=== PATIENT | male | born 1975 | race Caucasian/White ===

== ENCOUNTER 2017-05-05 16:59 | Emergency (ER) | payer BC, SELFPAY | END 2017-05-05 18:21 | disposition home or self-care (01) | PROVIDERS: Emergency Provider Emergency Medicine; Visit Provider Emergency Medicine | DX: I10 Essential (primary) hypertension (principal); Z91.14 Patient's other noncompliance with medication regimen; Z88.0 Allergy status to penicillin | CPT/HCPCS: 99282 ==

== ENCOUNTER 2017-05-22 13:23 | Emergency (ER) | payer BC, SELFPAY ==
[2017-05-22 14:57] VITALS: BP 151/98; PULSE 94; RESP 20; TEMP 36.6; O2SAT 100; BMI 31.1
[2017-05-22 15:15] LABS: UTC Influenza A Antigen Negative (Negative); UTC Influenza B Antigen Negative (Negative)
--- NOTE | 2017-05-22 15:28 | HMH.EDUTC ---
[facility] [place] Clinical Impression: Viral upper respiratory illness Disposition: Home, Self-Care Condition on Discharge: Good Instructions: Common Cold, DI for Viral Upper Respiratory Infection -- Adult Additional Instructions: * Monitor Temp. Tylenol and/or Ibuprofen as needed. ER if fever is no less than 101 despite alternating Tylenol and Ibuprofen * Encourage fluids, water, Gatorade, powerade, pedialyte if infant/toddler/or child * Warm salt water gargles for throat irritation *Warm fluids *Sore throat lozenges *Sleep elevated *humidifier or vaporizer Lots of rest Increase fluids, water, Gatorade, powerade *Bromfed may cause drowsiness. Know how it effect you or your child. Before driving, caring for small children or sending your child to school *Your throat swab was sent to lab for culture. Those results area typically sent to your primary care physician. Be sure to follow up in 2-3 days if no improvement so they can review those results and treat if necessary If you dont have primary care I recommend you get one, but in the mean time you will have to return to a walk in clinic Follow up IMMEDIATELY for new or worsening of symptoms OR no noticeable improvement over the next 48-72 hours. 911 immediately for any life threatening symptoms such as chest pain or difficulty breathing Prescriptions: Brompheniramine/Pseudoephed/Dm [Bromfed DM Cough Syrup 5mL] 10 ml PO Q4H PRN #200 syrup PRN Reason: Cough Referrals: Tristan Garcia [Primary Care Provider] - Time of Disposition: 15:37 Medical Decision Making Vital Signs: 05/22/17 14:57 Temperature 97.9 F Temperature Source Temporal Artery Scan Pulse Rate [Right] 94 H Respiratory Rate 20 Blood Pressure [Right Arm] 151/98 Blood Pressure Mean [Right Arm] 115 Blood Pressure Source [Right Arm] Automatic Cuff Blood Pressure Position [Right Arm] Sitting 02 Sat by Pulse Oximetry 100 Oxygen Delivery Method Room Air - Lab Data Lab Results 05/22/17 15:01: Influenza Type A Ag Negative, Influenza Type B Ag Negative - Ketan Inquiry Pt receiving controlled substance: No Ketan was queried for this patient: No [facility] [place] - General Stated complaint: fever cough Mode of Arrival: Ambulatory Source of Information: Patient Limitations: No Limitations Description of Symptoms (Recalled from Triage Doc. by RN): COUGH, CONGESTION, HEADACHE SATURDAY HEENT Symptoms (Recalled from RN notes): Yes Resp Symptoms (Recalled from RN notes): No Skin Symptoms (Recalled from RN notes): No MS Symptoms (Recalled from RN notes): No Functional Status (Recalled from RN notes): N - History of Present Illness Provider Complaint: Patient states that he has been having flu like symptoms for three days now States that he has had a fever on and off for the last 3 days and thought he better come in and get checked for the flu - Related Data Previous Rx's Medication Instructions Recorded Brompheniramine/Pseudoephed/Dm 10 ml PO Q4H PRN #200 syrup 05/22/17 [Bromfed DM Cough Syrup 5mL] Allergies Allergy/AdvReac Type Severity Reaction Status Date / Time Penicillins [PENICILLINS] Allergy Mild Unverified 05/07/17 14:28 - Worker's Comp Is this a Worker's Comp case?: No [facility] History - *Social History Alcohol Intake: never - Psychiatric History Expresses thoughts of harming self/others: None Suicide Plan Description: No Plan - Constitutional Reports chills, Reports fever(s) - ENT Reports nasal congestion - Respiratory Reports cough Physical Exam - General General appearance: alert, in no apparent distress - ENT ENT exam: Present: normal exam, normal oropharynx, mucous membranes moist, TM's normal bilaterally, normal external ear exam - Respiratory Respiratory exam: Present: normal lung sounds bilaterally. Absent: respiratory distress - Cardiovascular Cardiovascular exam: Present: regular rate, normal rhythm. Absent: JVD - Neurological Exam Neurolo
--- NOTE | 2017-05-22 15:36 | ED_ITS ---
[facility] [place] Clinical Impression: Viral upper respiratory illness Disposition: Home, Self-Care Condition on Discharge: Good Instructions: Common Cold, DI for Viral Upper Respiratory Infection -- Adult Additional Instructions: * Monitor Temp. Tylenol and/or Ibuprofen as needed. ER if fever is no less than 101 despite alternating Tylenol and Ibuprofen * Encourage fluids, water, Gatorade, powerade, pedialyte if infant/toddler/or child * Warm salt water gargles for throat irritation *Warm fluids *Sore throat lozenges *Sleep elevated *humidifier or vaporizer Lots of rest Increase fluids, water, Gatorade, powerade *Bromfed may cause drowsiness. Know how it effect you or your child. Before driving, caring for small children or sending your child to school *Your throat swab was sent to lab for culture. Those results area typically sent to your primary care physician. Be sure to follow up in 2-3 days if no improvement so they can review those results and treat if necessary If you don? t have primary care I recommend you get one, but in the mean time you will have to return to a walk in clinic Follow up IMMEDIATELY for new or worsening of symptoms OR no noticeable improvement over the next 48-72 hours. 911 immediately for any life threatening symptoms such as chest pain or difficulty breathing Prescriptions: Brompheniramine/Pseudoephed/Dm [Bromfed DM Cough Syrup 5mL] 10 ml PO Q4H PRN # 200 syrup PRN Reason: Cough Referrals: Tristan Garcia [Primary Care Provider] - Time of Disposition: 15:37 Medical Decision Making Vital Signs: 05/22/17 14:57 Temperature 97.9 F Temperature Source Temporal Artery Scan Pulse Rate [Right] 94 H Respiratory Rate 20 Blood Pressure [Right Arm] 151/98 Blood Pressure Mean [Right Arm] 115 Blood Pressure Source [Right Arm] Automatic Cuff Blood Pressure Position [Right Arm] Sitting 02 Sat by Pulse Oximetry 100 Oxygen Delivery Method Room Air - Lab Data Lab Results 05/22/17 15:01: Influenza Type A Ag Negative, Influenza Type B Ag Negative - Ketan Inquiry Pt receiving controlled substance: No Ketan was queried for this patient: No [facility] [place] - General Stated complaint: fever cough Mode of Arrival: Ambulatory Source of Information: Patient Limitations: No Limitations Description of Symptoms (Recalled from Triage Doc. by RN): COUGH, CONGESTION, HEADACHE SATURDAY HEENT Symptoms (Recalled from RN notes): Yes Resp Symptoms (Recalled from RN notes): No Skin Symptoms (Recalled from RN notes): No MS Symptoms (Recalled from RN notes): No Functional Status (Recalled from RN notes): N - History of Present Illness Provider Complaint: Patient states that he has been having flu like symptoms for three days now States that he has had a fever on and off for the last 3 days and thought he better come in and get checked for the flu - Related Data Previous Rx's Medication Instructions Recorded Brompheniramine/Pseudoephed/Dm 10 ml PO Q4H PRN #200 syrup 05/22/17 [Bromfed DM Cough Syrup 5mL] Allergies Allergy/AdvReac Type Severity Reaction Status Date / Time Penicillins [PENICILLINS] Allergy Mild Unverified 05/07/17 14:28 - Worker's Comp Is this a Worker's Comp case?: No [facility] History - *Social History Alcohol Intake: never - Psychiatric History Expresses thoughts of harming self/others: None
== END 2017-05-22 15:50 | disposition home or self-care (01) ==
PROVIDERS: Emergency Provider Nurse Practitioner; Family Provider Family Medicine; PCP Internal Medicine
DX: J06.9 Acute upper respiratory infection, unspecified (principal)
CPT/HCPCS: 87276; 87804; 99202

== ENCOUNTER 2022-08-27 15:17 | Emergency (ER) | payer OTHER, SELFPAY ==
[2022-08-27 15:19] VITALS: BP 173/113; PULSE 91; RESP 17; TEMP 36.7; O2SAT 98; BMI 35.4
[2022-08-27 15:31] VITALS: BP 171/103; PULSE 89; RESP 20; O2SAT 97
--- NOTE | 2022-08-27 15:31 | XR_ITS ---
FINAL REPORT CLINICAL HISTORY: CRUSH INJURY LEFT MIDDLE FINGER- distal smashed with forklift FINDINGS: LEFT HAND Two views were obtained. There is no acute fracture or dislocation. There are mild degenerative changes. There is soft tissue swelling at the tip of the 3rd digit. IMPRESSION: No acute bony abnormality. Reviewed, Interpreted and Dictated by Darci Robison III, MD Transcribed by Carole Cardoza Authenticated and . [facility]
--- NOTE | 2022-08-27 15:35 | PC.NURSE ---
XR AT BEDSIDE
--- NOTE | 2022-08-27 15:40 | ED_ITS ---
Discharge Plan Disposition Patient Disposition: Home, Self-Care Prescriptions Prescriptions: No Action [id number] [Bromfed DM] 473 ML Syrup 10 ml PO Q4H PRN (Reason: Cough) Qty: 200 0RF Referrals Follow up/Referrals: Provider,Referral, [Primary Care Provider] - See instructions Activity Restrictions/Add. Instructions Additional Instructions/Restrictions: You had a volar fat pad tissue avulsion today where significant mount of tissue loss occurred as a result of your injury and you had no skin to reapproximate. We cauterized your bleeding tissue and placed Xeroform petroleum based gauze on the wound. Please continue to do dressing changes twice a day with petroleum based ointment such as Neosporin until your wound is completely healed. Additionally please follow-up with your primary care doctor in 2 to 3 days for wound reassessment return to the emergency department spreading redness or pus coming from your wound. Clinical Impressions Clinical Impression: Soft tissue avulsion, Finger injury Instructions Patient Instructions: DI for Laceration Repair Discharge ED Provider: Flavio Scott General Adult HPI General Chief complaint: Wound/Laceration Stated complaint: WC 08/27 laceration to Left hand middle finger Time Seen by Provider: 08/27/22 15:40 Mode of Arrival: Ambulatory Source of Information: Patient Limitations: No Limitations Description of Symptoms (Recalled from ER Triage Doc. 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 This happened with a forklift injury no injuries elsewhere. Pain is mild at the moment. Related Data Previous Rx's Medication Instructions Recorded mtrlzqxcfennmdb-mjsutqeojqlgxyk-SI 10 ml PO Q4H PRN Cough ##200 05/22/17 2 mg-30 mg-10 mg/5 mL oral syrup (Bromfed DM) Allergies Allergy/AdvReac Type Severity Reaction Status Date / Time Penicillins [PENICILLINS] Allergy Mild Unverified 05/07/17 14:28 [facility] Disclaimer: The information contained in this section may have been updated after the patient was seen, as this information can be updated by other users. Social History Smoking Status: Never smoker alcohol intake: never current occupational status: other Travel in the last 8 weeks: None ROS Obtained: Yes All systems reviewed & no additional complaints except as documented Physical Exam General General appearance: alert Respiratory Respiratory exam: Present normal lung sounds bilaterally; Absent respiratory distress, wheezes or stridor Cardiovascular Cardiovascular exam: Absent tachycardia Extremities Exam Extremities exam: Present other (On the volar fat pad aspect of the left middle digit distal phalanx there is complete tissue avulsion not going down to the bone but tissue is macerated ) Neurological Exam Neurological exam: Present alert and oriented X3 Medical Decision Making Ketan Inquiry Pt receiving controlled substance: No Vital Signs: 08/27/22 15:19 08/27/22 15:31 Temperature 98.0 F Temperature Source Oral Pulse Rate 89 Pulse Rate [Radial] 91 H Respiratory Rate 17 20 Blood Pressure 171/103 H Blood Pressure [Right Arm] 173/113 H Blood Pressure Mean 138 Blood Pressure Mean [Right Arm] 133 Blood Pressure Source [Right Arm] Automatic Cuff Blood Pressure Position [Right Arm] Sitting 02 Sat by Pulse Oximetry 98 97 Oxygen Delivery Method Room Air Orders (Tests/Meds): ED MEDICATIONS Discontinued Medications Generic Name Dose Route Start Last Admin Trade Name Freq PRN Reason Stop Dose Admin Tetanus/Reduced Diphtheria/Acell Pertussis 0.5 ml 08/27/22 16:30 08/27/22 16:33 Tet/Diphth/Pert-Adult 0.5ml Syringe IM 08/27/22 16:31 0.5 ml .ONCE ONE Administration ORDERS Category Date Time Status Hand XR left 2 views [XR hand LT 2V] Stat Exams 08/27/22 15:31 Taken Medical Decision Narrative: 47-year-old with a volar fat pad injury with tissue avulsion. I did a digital block to clean up the wound and tissue was significantly macerated without any skin that was available to reapproximate. I debrided the fat and the damaged tissue to make a flat wound field. Subsequently used electrocautery to blue stop the bleeding and place petroleum based dressing on top of this to allow for secondary wound healing. Discussed with him wound management. Personally viewed the patient's x-rays and there were no distal phalanx fractures on top of this. Wound was extensively irrigated and is unlikely this is getting infected but gave him return precautions regarding infection as well. He will follow-up with his primary care doctor as needed. Procedures Laceration Laceration 1: Site: finger Side (If applicable): left Size (cm): 3 Description: other (Macerated tissue avulsion) Depth: involves subcutaneous layer Local Anesthetic: lidocaine 1% and with epi Amount of anesthesia used (mL): 5 (Digital block) Pre-repair: wound explored, irrigated extensively and extensive debridement Skin layer closed with: other (Attempted to closed with nylon sutures but there is no tissue that could be reapproximated even with undermining; subsequently bleeding was stopped using electrocautery and Xeroform dressing was placed on top of this to a lot of heal by secondary intention) Critical Care Time Critical Care Time Critical Care Time: No Attestation: On 08/27/22, the high probability of a clinically significant, sudden or life threatening deterioration of the following system(s) required my full and direct attention, intervention and personal management. The time I documented below is in addition to time spent performing reported procedures but includes the following listed in this critical care notation.
--- NOTE | 2022-08-27 15:57 | PC.NURSE ---
DR TRONCOSO AT BEDSIDE
[2022-08-27] MEDS: TET/DIPHTH/PERT-ADULT 0.5ML SYRINGE 0.5 ML IM (16:33)
[2022-08-27 16:40] VITALS: BP 168/105; PULSE 90; RESP 18; TEMP 36.8; O2SAT 99
== END 2022-08-27 16:45 | disposition home or self-care (01) ==
PROVIDERS: Emergency Provider Student in an Organized Health Care Education/Training Program; PCP Internal Medicine
DX: S61.213A Laceration without foreign body of left middle finger without damage to nail, initial encounter (principal); W23.2XXA Caught, crushed, jammed or pinched between a moving and stationary object, initial encounter
CPT/HCPCS: 11042; 12042; 73120; 90471; 90714; 90715; 96372; 99283; 99284

== ENCOUNTER 2022-09-05 08:04 | Emergency (ER) | payer OTHER, BC, SELFPAY ==
[2022-09-05 08:15] VITALS: BP 173/91; PULSE 87; RESP 20; TEMP 36.9; O2SAT 97; BMI 35.4
--- NOTE | 2022-09-05 08:37 | EXP.UTC ---
Discharge Plan Disposition Patient Disposition: Home, Self-Care Condition: Good Prescriptions Prescriptions: New clindamycin HCl 300 mg capsule 300 mg PO Q6H 7 Days Qty: 28 0RF Referrals Follow up/Referrals: Provider,Referral, [Primary Care Provider] - See instructions Activity Restrictions/Add. Instructions Additional Instructions/Restrictions: Call [facility] and make appointment for further evaluation and examination [phone] Take medication as prescribed Return if needed Straight to ER if any worsening of redness, swelling, streaks etc Continue previous ER discharge instructions Follow up with your Family Doctor Clinical Impressions Clinical Impression: Finger injury Instructions Patient Instructions: DI for Avulsion Laceration (Not Requiring Sutures), Clindamycin Discharge ED Provider: Margareth Espinoza [facility] General Stated complaint: AO@work 08/27 LT middle finger lesion Mode of Arrival: Ambulatory Source of Information: Patient Limitations: No Limitations Time Seen by Provider: 09/05/22 08:37 Description of Symptoms (Recalled from Triage Doc. by RN): pt was at work and forklift fell and tried to catch it and cut off tip of left middle finger. It is red, swollen and skin inside is discolored. He stated that he still has feeling in his finger around it. He states that movement is not limited. He just wanted to get it checked out to make sure it wasn't infected. HEENT Symptoms (Recalled from RN notes): No Resp Symptoms (Recalled from RN notes): No Skin Symptoms (Recalled from RN notes): Yes MS Symptoms (Recalled from RN notes): No Functional Status (Recalled from RN notes): n/a History of Present Illness Provider Complaint: Patient states that about a week ago he got the pad of his left middle finger cut off at work States that he was seen in the ED and treated States that he hasnt been having any pain or numbness and can still feel everything but it isnt healing as fast as he thought it was and it was starting to look a little red States that he was worried it was getting infected so he came in Related Data Previous Rx's Medication Instructions Recorded clindamycin HCl 300 mg capsule 300 mg PO Q6H 7 days #28 caps 09/05/22 Allergies Allergy/AdvReac Type Severity Reaction Status Date / Time Penicillins [PENICILLINS] Allergy Mild Verified 09/05/22 08:34 Worker's Comp Is this a Worker's Comp case?: No PFSH PFSH Disclaimer: The information contained in this section may have been updated after the patient was seen, as this information can be updated by other users. Social History Smoking Status: Never smoker alcohol intake: never current occupational status: other Travel in the last 8 weeks: None ROS Obtained: Yes All systems reviewed & no additional complaints except as documented and Yes Systems reviewed as appropriate & no additional complaints except as documented ENT Ears, Nose, Mouth, and Throat: Reports system reviewed and no additional complaints, except as documented and Reports as per HPI Cardiovascular Cardiovascular: Reports system reviewed and no additional complaints, except as documented and Reports as per HPI Respiratory Respiratory: Reports system reviewed and no additional complaints, except as documented and Reports as per HPI Gastrointestinal Gastrointestingal: Reports system reviewed and no additional complaints, except as documented and as per HPI Integumentary/Breasts Skin/Breast: Reports system reviewed and no additional complaints, except as documented and Reports as per HPI Comments: injury to left ring ringer finger pad Physical Exam General General appearance: alert and in no apparent distress Respiratory Respiratory exam: Present normal lung sounds bilaterally; Absent respiratory distress or wheezes Cardiovascular Cardiovascular exam: Present regular rate, normal rhythm and normal heart sounds E
[2022-09-05 08:54] VITALS: BP 173/91; PULSE 87; RESP 20; TEMP 36.9; O2SAT 97
== END 2022-09-05 08:54 | disposition home or self-care (01) ==
PROVIDERS: Emergency Provider Nurse Practitioner
DX: S61.303A Unspecified open wound of left middle finger with damage to nail, initial encounter (principal); W26.8XXA Contact with other sharp object(s), not elsewhere classified, initial encounter
CPT/HCPCS: 99204; 99212; G0463

== ENCOUNTER 2024-09-05 08:40 | Outpatient (CLI) | payer SELFPAY ==
[2024-09-05 09:07] LABS: Basophils # 0.1 K/mm3 (0-0.2); Basophils % 1.1 % (0.1-2.0); Eosinophils # 0.3 Kmm3 (0.0-0.4); Hematocrit 42.6 % (42.0-52.0); Hemoglobin 14.6 g/dL (14.1-18.0); Lymphocytes # 1.7 K/mm3 (0.7-4.5); Lymphocytes % 26.3 % (10-50); Mean Corpuscular HGB Conc 34.3 g/dL (31.8-35.4); Mean Corpuscular Hemoglobin 29.4 pg (27.0-31.2); Mean Corpuscular Volume 85.7 fl (80-94); Mean Platelet Volume 9.6 fl (7.4-10.4); Monocytes # 0.6 K/mm3 (0.1-1.0); Monocytes % 8.8 % (1.7-9.3); Neutrophils # 3.8 K/mm3 (1.8-7.8); Neutrophils % 58.5 % (37.0-80.0); Nucleated Red Blood Cells # 0 10^3/uL; Nucleated Red Blood Cells % 0 %; Platelet Count 253 K/mm3 (142-424); Red Blood Count 4.97 M/mm3 (4.60-6.20); Red Cell Distribution Width-SD 37.5 fL; White Blood Count 6.6 K/mm3 (4.8-10.8)
[2024-09-05 09:32] LABS: Alanine Aminotransferase 21 U/L (12-78); Albumin Level 4.2 g/dl (3.5-5.0); Albumin/Globulin Ratio 1.6 (1.1-1.8); Alkaline Phosphatase 58 U/L (38-126); Anion Gap 10.9 mEq/L (5-15); Aspartate Amino Transferase 20 U/L (17-59); Bilirubin,Total 0.4 mg/dl (0.2-1.3); Blood Urea Nitrogen 18 mg/dl (9-20); Calcium 8.8 mg/dl (8.4-10.2); Carbon Dioxide 28 mmol/L (22.0-30.0); Chloride 103 mmol/L (98-107); Chol/HDL Ratio 3.4 (1-3.5); Cholesterol 139 mg/dl (140-200); Estimated Glomerular Filt Rate 90 ml/min (>60); GFR (African American) 109 ML/MIN (>60); Globulin 2.7 g/dL (1.3-3.2); Glucose 102 mg/dl (74-100); HDL Cholesterol 41 mg/dl (40-60); Potassium 3.9 mmoL/L (3.5-5.1); Sodium 138 mmol/L (136-145); Total Protein,Serum 6.9 g/dl (6.3-8.2); Triglycerides 100 mg/dl (30-150); VLDL Cholesterol 20 mg/dL (0-40)
[2024-09-05 09:40] LABS: Hemoglobin A1C 5.4 % (4.0-6.0)
[2024-09-05 09:43] LABS: Direct LDL Cholesterol 66.59 mg/dL (100-129)
[2024-09-05 09:50] LABS: 25-OH Vitamin D, Total 36.4 ng/mL (30-100)
[2024-09-05 10:21] LABS: Vitamin B12 542 pg/mL (239-931)
[2024-09-05 10:29] LABS: Total Iron Binding Capacity 356 ug/dL (261-462)
[2024-09-05 10:37] LABS: Triiodothryronine (T3) Uptake 37 % (23.5-40.5)
[2024-09-05 10:38] LABS: Free Thyroxine Index 3.4 ug/dL (5.93-13.13); T4 (Thyroxine) 9.2 ug/dl (5.53-11.0)
[2024-09-05 10:40] LABS: Iron 103 ug/dL (49-181)
[2024-09-05 10:41] LABS: Folate 7.16 ng/mL
[2024-09-05 10:51] LABS: Thyroid Stimulating Hormone 1.01 uIU/mL (0.465-4.68)
[2024-09-05 10:53] LABS: Ferritin 282 ng/ml (17.9-464)
[2024-09-15 18:28] LABS: Testosterone, Total, LC/MS 241 ng/dL (.)
== END 2024-09-05 23:59 | disposition home or self-care (01) ==
PROVIDERS: PCP Nurse Practitioner Family; Visit Provider Nurse Practitioner Family
DX: Z01.89 Encounter for other specified special examinations (principal); I10 Essential (primary) hypertension; E78.5 Hyperlipidemia, unspecified
CPT/HCPCS: 36415; 80053; 80061; 82306; 82607; 82728; 82746; 83036; 83540; 83550; 84403; 84436; 84443; 84479; 85025